=== PATIENT | female | born 1955 | race Caucasian/White ===

== ENCOUNTER 2019-11-12 13:04 | Emergency (ER) | payer MEDICARE, BC ==
[~2019-11-12] VITALS: Ht 167.6 cm; Wt 79.0 kg
[2019-11-12 13:48] LABS: URINE BILIRUBIN - DIPSTICK NEGATIVE (NEGATIVE); URINE BLOOD DIPSTICK NEGATIVE (NEGATIVE); URINE COLOR YELLOW; URINE GLUCOSE - DIPSTICK NEGATIVE (NEGATIVE); URINE KETONE NEGATIVE (NEGATIVE); URINE LEUK ESTERASE TRACE (NEGATIVE); URINE NITRITE - DIPSTICK NEGATIVE (Negative); URINE PH 5.5 (4.5-8.0); URINE PROTEIN - DIPSTICK TRACE mg/dL (NEG-TRACE); URINE SPECIFIC GRAVITY >=1.030; URINE UROBILINOGEN - DIPSTICK 0.2 E.U./dL (0.2)
[2019-11-12 14:37] LABS: HEMATOCRIT 37.7 % (37.0-47.0); HEMOGLOBIN 11.8 g/dl (12.0-16.0); IMMATURE GRANULOCYTES 0.2 % (0.0-5.0); MEAN CELL VOLUME 83.2 fL CALC (80.0-100.0); MEAN CORPUSCULAR HGB CONC 31.3 g/L CALC (32.0-36.0); NEUT# 2.09 thou/uL (2.00-7.15); RED BLOOD COUNT 4.53 mill/uL (4.20-5.60); RED CELL DISTRI WIDTH 14.1 % (11.5-15.5)
[2019-11-12 15:05] LABS: ALKALINE PHOSPHATASE 104 u/l (38-126); ANION GAP 16 (6-22 (CALC)); BILIRUBIN, TOTAL 0.4 mg/dL (0.0-1.4); BUN 19 mg/dL (8-23); BUN/CREATININE RATIO 29 (12-20 (CALC)); CARBON DIOXIDE 21 mmol/l (22-30); CHLORIDE 106 mmol/l (95-108); CREATININE 0.7 mg/dL (0.5-1.0); GFR > 60 ML/MIN (>=60 (CALC)); GFR FOR AFR.AMER. > 60 ML/MIN (>=60 (CALC)); POTASSIUM 4.1 mmol/l (3.5-5.1); SGOT/AST 23 u/l (9-36); SODIUM 138 mmol/l (137-146); TOTAL PROTEIN 7.3 g/dL (6.3-8.2)
[2019-11-12 15:18] LABS: MYOGLOBIN 22 ng/mL (0 - 62)
[2019-11-12 15:31] VITALS: BP 136/81
== END 2019-11-12 16:25 | disposition home or self-care (01) ==
LOC: ED 13:04
PROVIDERS: Emergency Medicine
DX: B34.9 Viral infection, unspecified (principal); F32.9 Major depressive disorder, single episode, unspecified; I10 Essential (primary) hypertension; R06.02 Shortness of breath

== ENCOUNTER 2020-04-12 | Day surgery (SDC) | payer MEDICARE, BC ==
[~2020-04-12] MED LIST: CARAFATE1 GM PO; DULERA1 AE1 IN; LEVOTHYROXIN100 MCG PO; LEVOTHYROXIN25 MC1 PO; LORAZEPAM0.5 MG PO; MOMETASONE IN; MONTELUKAST SOD10 MG PO; NITROFURANTOIN50 MG PO; PROTONIX40 M2 PO; SERTRALINE25 MG PO; XYZAL ALLERGY 245 MG PO; [UNRECOGNIZED DRUG - OTHER] IN
[2020-04-12] MEDS ORDERED: NASOGEL (07:02)
[2020-04-12] MEDS ORDERED: CELEBREX100 M1 PO (07:03)
== END 2020-04-12 08:38 | disposition home or self-care (01) ==
PROC: 0DB98ZX Excision of Duodenum, Via Natural or Artificial Opening Endoscopic, Diagnostic (ICD-10-PCS; principal; 2020-04-12)
PROC: 0DB78ZX Excision of Stomach, Pylorus, Via Natural or Artificial Opening Endoscopic, Diagnostic (ICD-10-PCS; 2020-04-12)
PROC: 0DB68ZX Excision of Stomach, Via Natural or Artificial Opening Endoscopic, Diagnostic (ICD-10-PCS; 2020-04-12)
PROC: 0DB58ZX Excision of Esophagus, Via Natural or Artificial Opening Endoscopic, Diagnostic (ICD-10-PCS; 2020-04-12)
PROC: 0DB48ZX Excision of Esophagogastric Junction, Via Natural or Artificial Opening Endoscopic, Diagnostic (ICD-10-PCS; 2020-04-12)
DX: K21.9 Gastro-esophageal reflux disease without esophagitis (principal); K29.50 Unspecified chronic gastritis without bleeding; I10 Essential (primary) hypertension; Z11.59 Encounter for screening for other viral diseases

== ENCOUNTER 2021-12-23 18:04 | Emergency (ER) | payer MEDICARE, BC ==
[~2021-12-23] VITALS: Ht 167.6 cm; Wt 70.0 kg
[~2021-12-23 18:04] MED LIST changes: +CELEBREX100 M1 PO; +LEVOTHYROXIN100 MC1 PO; +MIDODRINE HYDR2.5 MG PO; +MOMETASONE INHW/SPAC; +NASOGEL; +[UNRECOGNIZED DRUG - OTHER] INHW/SPAC
[2021-12-23 19:03] LABS: HEMATOCRIT 41.4 % (37.0-47.0); HEMOGLOBIN 12.5 g/dl (12.0-16.0); IMMATURE GRANULOCYTES 0.5 % (0.0-5.0); MEAN CELL VOLUME 93.2 fL CALC (80.0-100.0); MEAN CORPUSCULAR HGB 28.2 pG CALC (26.0-32.0); MEAN CORPUSCULAR HGB CONC 30.2 g/dL CAL (32.0-36.0); NEUT# 6.7 thou/uL (2.00-7.15); RED BLOOD COUNT 4.44 mill/uL (4.20-5.60); RED CELL DISTRI WIDTH 13.1 % (11.5-15.5)
[2021-12-23 19:14] LABS: ALBUMIN 3.8 g/dL (3.2-5.0); ALKALINE PHOSPHATASE 80 u/l (38-126); ANION GAP 11 (6-22 (CALC)); BUN 32 mg/dL (8-23); BUN/CREATININE RATIO 35 (12-20 (CALC)); CARBON DIOXIDE 26 mmol/l (22-30); CHLORIDE 107 mmol/l (95-108); CREATININE 0.9 mg/dL (0.5-1.0); ETHYL ALCOHOL 0 mg/dl (0-30); GFR > 60 ML/MIN (>=60 (CALC)); GFR FOR AFR.AMER. > 60 ML/MIN (>=60 (CALC)); POTASSIUM 4.3 mmol/l (3.5-5.1); SGOT/AST 16 u/l (9-36); SODIUM 139 mmol/l (137-146)
[2021-12-23 19:15] LABS: BILIRUBIN, TOTAL 0.3 mg/dL (0.0-1.4)
[2021-12-23 20:10] LABS: URINE BILIRUBIN - DIPSTICK NEGATIVE (NEGATIVE); URINE BLOOD DIPSTICK NEGATIVE (NEGATIVE); URINE COLOR YELLOW; URINE GLUCOSE - DIPSTICK NEGATIVE (NEGATIVE); URINE KETONE NEGATIVE (NEGATIVE); URINE LEUK ESTERASE TRACE (NEGATIVE); URINE PH 6.5 (4.5-8.0); URINE PROTEIN - DIPSTICK NEGATIVE (NEG-TRACE); URINE SPECIFIC GRAVITY <=1.005; URINE UROBILINOGEN - DIPSTICK 0.2 E.U./dL (0.2)
[2021-12-23 20:14] LABS: URINE NITRITE - DIPSTICK NEGATIVE (Negative)
[2021-12-23 22:55] VITALS: BP 127/91
== END 2021-12-23 22:59 | disposition designated cancer center or children's hospital (05) ==
LOC: ED 18:04
PROVIDERS: Emergency Medicine
DX: T65.892A Toxic effect of other specified substances, intentional self-harm, initial encounter (principal); F41.9 Anxiety disorder, unspecified; F32.A Depression, unspecified; I10 Essential (primary) hypertension; K21.9 Gastro-esophageal reflux disease without esophagitis; Y92.009 Unspecified place in unspecified non-institutional (private) residence as the place of occurrence of the external cause

== ENCOUNTER 2022-10-04 16:36 | Emergency (ER) | payer MEDICARE, BC ==
[~2022-10-04] VITALS: Ht 167.6 cm; Wt 101.0 kg
[~2022-10-04 16:36] MED LIST changes: +HYDROXYZ HCL25 MG PO; +IMITREX25 MG PO; +OLANZAPINE5 MG PO; +VENLAFAXINE HCL75 M1 PO
[2022-10-04 16:41] VITALS: BP 132/73
[2022-10-04 17:01] VITALS: BP 125/66
[2022-10-04 18:06] VITALS: BP 125/66
== END 2022-10-04 18:44 | disposition home or self-care (01) ==
LOC: ED 16:36
DX: S06.0X0A Concussion without loss of consciousness, initial encounter (principal); S00.03XA Contusion of scalp, initial encounter; M25.512 Pain in left shoulder; M25.522 Pain in left elbow; I10 Essential (primary) hypertension; F41.9 Anxiety disorder, unspecified; K21.9 Gastro-esophageal reflux disease without esophagitis; W11.XXXA Fall on and from ladder, initial encounter; Y92.009 Unspecified place in unspecified non-institutional (private) residence as the place of occurrence of the external cause